=== PATIENT | female | born 1955 | race Caucasian/White ===

== ENCOUNTER → 2020-04-28 10:43 | Outpatient (CLI) | payer OTHER, SELFPAY | PROVIDERS: PCP Family Medicine; Visit Provider Family Medicine | DX: R10.9 Unspecified abdominal pain (principal) | CPT/HCPCS: 87086; 87088 ==

== ENCOUNTER 2020-10-24 13:20 | Outpatient (RCR) | payer OTHER, SELFPAY ==
[2020-10-24] MEDS: COVID-19 VACC, MRNA(PFIZER)/PF 30 MCG/0.3 ML SYRINGE IM (15:06)
[2020-11-14] MEDS: COVID-19 VACC, MRNA(PFIZER)/PF 30 MCG/0.3 ML SYRINGE IM (15:09)
== END 2021-01-16 23:59 ==
LOC: IMMUN 13:20
PROVIDERS: PCP Family Medicine; Referring Provider Family Medicine; Visit Provider Family Medicine
DX: Z23 Encounter for immunization (principal)
CPT/HCPCS: 0001A; 0002A; 91300

== ENCOUNTER 2021-03-02 16:00 | Outpatient (RCR) | payer OTHER, SELFPAY ==
--- NOTE | 2021-01-19 16:20 | HP.PTEVAL_ITS ---
Patient's Visit Information JENNY PENA is a 65 year old F referred to Physical Therapy by Dr. Jemma Good MD with a diagnosis of R SHOULDER STRAIN. Date of Evaluation: 01/19/21 Physical Therapist: Maddie You PT, Cert MDT - Visit Plan Frequency: 1-2x /Week Duration: 4-6 Weeks Plan: WOULD RECOMMEND PT 2X'S A WK X [address] GOOD BUT PATIENT UNABLE TO AFFORD DUE TO LACK OF INSURANCE COVERAGE. PATIENT AGREEABLE TO 1X/WK AT THIS TIME FOR 4 MORE VISITS NEEDED. R NECK/SHLD US, E-STIM WITH MH, POSTURE CORRECTION/STRENGTHENING, INSTRUCTION IN APPROPRIATE BODY MECHANICS AND ACTIVITY MODIFICATIONS. RICARDO UE ROM, STRETCHING AND STRENGTHENING. HEP INSTRUCTION. 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 Disability: NO. Present symptoms: INTERMITTENT RIGHT SHOULDER PAIN. INTERMITTENT RIGHT FOREARM AND HAND NUMBNESS AND TINGLING. INTERMITTENT RIGHT NECK AND UPPER TRAP PAIN. Present since: COUPLE MONTHS. Pain Scale: Worst - 4/10 Least - 0/10. Currently: 0/10. Commenced as a result of: NO APPARENT REASON. Symptoms at onset: NECK. Worse: RAISING ARM, LIFTING, REACHING BACK, PUTTING ARM IN A SHIRT, STARTING WEED EATER, MORNING AFTER WEED EATING AND MOWING BUT FEELS GOOD DURING MOWING. DOG GROOMING. DOG PULLING ON LEASE DURING WALK. Better: REST, IBUPROFEN, ICE. Disturbed sleep: NO. Previous history/Previous treatment: SEVERAL YEARS AGO HAD PAIN IN SHLD. SOME FALLS OFF HORSES AND FALLS HIKIING. HAS BEEN SEEING A CHIROPRACTOR OFF AND ON NEEDED FOR NECK FOR ABOUT 10 YEARS. HAD 6 LASER TREATMENTS ON NECK AND SHLD BY CHIROPRACTOR - NO SIGNIFICANT IMPROVEMENT. NO NECK SURGERY. NO MANJIT'S. NO NECK TRACTION. This episode: PT CONSULT. LASER TREATMENTS X 6 ON R SHLD BY CHIROPRACTOR FOR TENDONITIS/BURSITIS. Dizziness: NO. Tinnitis: NO. Nausea: NO. Shortness of Breath: NO. Difficulty Swollowing: NO. Gait: NORMAL. Accidents: MULTIPLE FALLS. NO MAJOR MVA'S. Unexplained weight loss: NO. Imaging: NO SHOULDER X-RAYS. NEVER HAS HAD NECK X-RAYS PER PATIENT REPORT. PMH/Recent major surgery: UNREMARKABLE. - Objective Sitting Posture/Standing Posture: FAIR. FH. RS'S. Active Correction of posture: NE. Other Observations: INDEP GAIT AND TRANSFERS. Motor deficit: RIGHT HAND DOMINANT. 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 LEGT STRUCTURAL IRON WORKER 55 LBS. L UE 5/5 WITH MMT'ING. R UE: SHLD. Sensory deficit: RICARDO UE LIGHT TOUCH SENSATION INTACT AND SYMMETRICAL. ROM deficit: DECREASED RIGHT SHLD ROM COMPARED TO LEFT. IN SUPINE R SHLD FLEX TO 150 DEG, ABD TO 90 DEG, ER - FULL, IR TO 15 DEG (IR AND ER MEASURED WITH 90 DEG ABD). FULL RIGHT ELBOW, FOREARM, WRIST AND HAND ROM. C/O R SHLD PAIN AT THE END OF THE AVAILABLE ROM WITH R SHLD PROM TESTING ALL PLANES EXCEPT ER. Reflexes: RICARDO UE'S 2/3. Dural Signs: POSITIVE RIGHT UE. Cervical Mvmt Loss: Flex: NIL. Pro: NIL. Ext: MIN. Ret: MOD. RSB: MOD TO PATRICA. LSB: MOD TO PATRICA. R Rot: MIN. L Rot: MOD. PATIENT C/O R NECK PAIN AND TIGHTNESS WITH CERVICAL ROM TESTING BUT NO PERIPHERALIZATION OF SX'S WITH TESTING UNTIL DURAL TEST. Postural strength: FAIR. Palpation: NO ACUTE NECK OR SHLD TENDERNESS. TREATMENT: RIGHT NECK AND SHLD US IN SITTING AT 1.5 W/CM2 X 10 MINUTES FOLLOWED BY THER ACT PER BELOW. - Goals Goal 1:: DECREASE C/O NECK, R SHLD AND R UE SX'S. Goal Time Frame: 4-6 Weeks Goal 2:: INCREASE PAINFREE FUNCTIONAL ROM OF R UE TO EASE ADL'S Goal Time Frame: 4-6 Weeks Goal 3:: INCREASE PAINFREE FUNCTIONAL STRENGTH OF R UE TO EASE ADL'S Goal 4:: PATIENT WILL BE INDEP WITH A HEP FOR CONTINUED IMPROVEMENT ONCE FORMAL PHYSICAL THERAPY CONCLUDES. Goal Time Frame: 4-6 Weeks - Anticipated Interventions Patient/Client Instruction: Educate patient on: Condition, Plan of Care, Risk Factors For the Purpose of:: To improve self management Therapeutic Exercise to Include: Strength training, Body mechanics, Postural training, Flexibilty training, Neuromotor development, Passive ROM, Active ROM, Scapular Strength/Stabilization For the Purpose of:: To decrease pain, To increase ROM, To improve muscle performance and motor function, To increase tolerance to activity/condition /position, To improve ability of physical actions for home/community/work/leisure TENS: Yes IF ES: Yes Cryotherapy (ice pack, ice massage): Yes Thermo therapy (hot pack): Yes Ultrasound (thermal/non thermal): Yes For the Purpose of:: To decrease pain, To improve nutrient delivery to tissue Thank you for the opportunity to evaluate your patient. For Medicare and Medicare HMO plans, please review the plan of care and approve it. It will need to be FAXED BACK to us at [phone] for Medicare purposes. For Medicare only, by signing this I certify the plan of care. Please let me know if there are questions or concerns regarding this plan of care. Physician Signature: Date:
--- NOTE | 2021-03-02 17:00 | HP.PTREVAL_ITS ---
Dr. Jemma Good MD, It has been my pleasure to treat JENNY PENA over the last 5 visits for R SHOULDER STRAIN. Please see the progress note below for an update on the physical therapy plan of care! Subjective: PATIENT REPORTS NEEDING TO TAKE PAIN MEDICATION AT WORK ABOUT 11AM TODAY FOR HER SHLD PAIN. PATIENT REPORTS SHE HAS DAYS THAT HER SHLD FEELS GOOD WITHOUT ANY MEDICATION AND OTHER DAYS THAT SHE HURTS ALL OVER. REPORTS INCREASED PAIN AFTER THE LAST VISIT FOR NO APPARENT REASON OTHER THAN THE E-STIM TREATMENT ALTHOUGH THE E-STIM PRIOR TO LAST VISIT SEEMED TO FEEL GOOD. FELL ASLEEP IN FRONT OF TV TWO NIGHTS IN A ROW AND FEELS SHE AGGREVATED THE RIGHT SIDE OF HER NECK. FOR THE MOST PART, OVER-ALL, IT IS DEFINATELY GETTING BETTER. Objective/Function: PATIENT WAS SEEN TODAY FOR RE-ASSESSMENT OF PROGRESS TOWARD THE SET PT GOALS AND THE NEED FOR FURTHER PHYSICAL THERAPY VS READINESS FOR DISCHARGE. PATIENT HAS MADE GOOD PROGRESS WITH THERAPY TOWARD THE SET GOALS BUT SHE STILL HAS SIGNIFICANT RIGHT SHLD IR DYSFUNCTION AND C/O'S OF R SHLD PAIN. FURTHER TESTING MAY BE INDICATED. SHE REPORTS SHE WILL CONTINUE HER HOME EX PROGRAM BUT SHE JUST CAN'T AFFORD TO KEEP COMING TO THERAPY. UPON EXAM TODAY: ROM deficit: IN SUPINE R SHLD FLEX TO 165 DEG, ABD TO 140 DEG, ER - FULL, IR TO 15 DEG (IR AND ER MEASURED WITH 90 DEG ABD). FULL RIGHT ELBOW, FOREARM, WRIST AND HAND ROM. C/O R SHLD PAIN AT THE END OF THE AVAILABLE ROM WITH R SHLD PROM TESTING ALL PLANES EXCEPT ER. ESPECIALLY PAINFULL AND LIMITED WITH INTERNAL R OTATION. Cervical Mvmt Loss: Flex: NIL. Pro: NIL. Ext: MIN. Ret: MOD. RSB: MOD. LSB: MOD. R Rot: MIN. L Rot: MOD. PATIENT C/O R NECK PAIN AND TIGHTNESS WITH CERVICAL ROM TESTING BUT NO PERIPHERALIZATION OF SX'S. Postural strength: FAIR. Palpation: NO ACUTE NECK OR SHLD TENDERNESS. HEP CHECK - INDEP. Plan Plan: PHYSICIAN RE-ASSESSMENT FRIDAY. Goals Goal 1:: DECREASE C/O NECK, R SHLD AND R UE SX'S. Goal Time Frame: 4-6 Weeks Goal Progress: Progressing Goal 2:: INCREASE PAINFREE FUNCTIONAL ROM OF R UE TO EASE ADL'S Goal Time Frame: 4-6 Weeks Goal Progress: Progressing Goal 3:: INCREASE PAINFREE FUNCTIONAL STRENGTH OF R UE TO EASE ADL'S Goal Progress: Progressing Goal 4:: PATIENT WILL BE INDEP WITH A HEP FOR CONTINUED IMPROVEMENT ONCE FORMAL PHYSICAL THERAPY CONCLUDES. Goal Time Frame: 4-6 Weeks Goal Progress: Progressing Anticipated Interventions Patient/Client Instruction: Educate patient on: Condition, Plan of Care, Risk Factors For the Purpose of:: To improve self management Therapeutic Exercise to Include: Strength training, Body mechanics, Postural training, Flexibilty training, Neuromotor development, Passive ROM, Active ROM, Scapular Strength/Stabilization For the Purpose of:: To decrease pain, To increase ROM, To improve muscle performance and motor function, To increase tolerance to activity/condition/position, To improve ability of physical actions for home/community/work/leisure TENS: Yes IF ES: Yes Cryotherapy (ice pack, ice massage): Yes Thermo therapy (hot pack): Yes Ultrasound (thermal/non thermal): Yes For the Purpose of:: To decrease pain, To improve nutrient delivery to tissue Please do not hesitate to contact me at [phone] by phone or if you have questions or concerns regarding this new plan of care! Sincerely, Maddie You PT, Cert MDT
--- NOTE | 2021-05-21 10:46 | HP.PT.NRP ---
JENNY PENA was seen in my office for initial evaluation on 01/19/21. The following Plan of Care was established for this patient: Initial Frequency: 1-2x /Week Initial Duration: 4-6 Weeks Patient/Client Instruction: Educate patient on: Condition, Plan of Care, Risk Factors For the Purpose of:: To improve self management Therapeutic Exercise to Include: Strength training, Body mechanics, Postural training, Flexibilty training, Neuromotor development, Passive ROM, Active ROM, Scapular Strength/Stabilization For the Purpose of:: To decrease pain, To increase ROM, To improve muscle performance and motor function, To increase tolerance to activity/condition/position, To improve ability of physical actions for home/community/work/leisure TENS: Yes IF ES: Yes Cryotherapy (ice pack, ice massage): Yes Thermo therapy (hot pack): Yes Ultrasound (thermal/non thermal): Yes For the Purpose of:: To decrease pain, To improve nutrient delivery to tissue This patient was last seen in our office 03/02/21. Pertinent comments regarding their Physical therapy will appear below: This patient has not returned to Physical Therapy and is appropriate to return to MD for further follow-up as needed. At this point I will be discontinuing this patient from physical therapy. I would be happy to see this patient again in the future if found appropriate by the physician. Thank you! Maddie You, PT, Cert MDT Balance/Gait/Functional tests - Balance/Special Test Scores Quick DASH Score: [phone]
== END 2021-03-02 19:00 | disposition home or self-care (01) ==
LOC: PT 16:00
PROVIDERS: PCP Family Medicine; Referring Provider Family Medicine; Visit Provider Family Medicine
DX: S46.911D Strain of unspecified muscle, fascia and tendon at shoulder and upper arm level, right arm, subsequent encounter (principal); X58.XXXD Exposure to other specified factors, subsequent encounter
CPT/HCPCS: 97014; 97035; 97162; 97164; 97530; G0283

== ENCOUNTER → 2021-03-05 11:45 | Outpatient (CLI) | payer OTHER, SELFPAY ==
[2021-03-05 15:14] LABS: Absolute Lymphocyte Count 2.01 X10^3/uL (0.83-4.51); Absolute Neutrophil Count 4.2 X10^3/uL (2.0-7.7); Basophil# 0.06 X10^3/uL; Basophil% 0.9 % (0-1); Eosinophil# 0.17 X10^3/uL; Eosinophils% 2.5 % (0-5); Hematocrit 41.5 % (37-47); Hemoglobin 13.8 g/dL (12.0-15.0); Lymphocyte # 2.01 X10^3/ul (0.83-4.51); Mean Corp Hgb Conc 33.3 g/dL (32-36); Mean Corpuscular Hgb 31.3 pg (27.0-32.0); Mean Corpuscular Volume 94.1 fL (81-99); Mean Platelet Vol. 9.2 fl (6.2-12.0); Monocyte# 0.44 X10^3/uL; Monocyte% 6.3 % (0-10); NRBC Flagged by Analyzer 0 % (0-5); Neutrophil # 4.22 X10^3/uL (2.7-7.7); Neutrophil % 60.9 % (47-70); Platelet Count 282 K/mm3 (150-450); RBC Distribution Width CV 13.2 % (11.6-14.6); RBC Distribution Width SD 45.7 fl (35.1-43.9); Red Blood Count 4.41 M/mm3 (4.2-5.4); White Blood Count 6.9 K/mm3 (4.4-11.0)
[2021-03-05 15:47] LABS: Thyroid Stim Hormone (TSH) 1.09 uIU/mL (0.358-3.74)
[2021-03-08 12:26] LABS: HPV Reflexed? NOT INDICATED
== END ==
PROVIDERS: PCP Family Medicine; Referring Provider Family Medicine; Visit Provider Family Medicine
DX: Z01.419 Encounter for gynecological examination (general) (routine) without abnormal findings (principal); L65.9 Nonscarring hair loss, unspecified
CPT/HCPCS: 36415; 84443; 85025; 88175; G0145

== ENCOUNTER → 2021-03-19 07:27 | Outpatient (CLI) | payer SELFPAY ==
--- NOTE | 2021-03-19 07:31 | BI_ITS ---
MAMMOGRAPHY - BILATERAL SCREENING REASON FOR EXAM: Female, 65 years old. Routine annual screening examination. PERTINENT HISTORY: Non-contributory. TECHNIQUE: Digital bilateral breast evin (3D mammographic acquisition) in the CC and MLO projections. 2-D mediolateral oblique (MLO) and craniocaudad (CC) views of both breasts were obtained. CAD: Full Field Digital Mammography with Computer Added Detection was performed. COMPARISON: No comparison mammograms available at this time. If any prior films become available, an addendum to this report can be generated. FINDINGS: Breast Composition: The breasts are heterogeneously dense, which may obscure small masses. There are no dominant masses or suspicious calcifications. Small benign-appearing bilateral axillary lymph nodes. No other significant abnormalities are identified. BI/SCREENING MAMM (CAD), BILAT IMPRESSION: Negative screening mammogram. Yearly followup mammogram recommended. (A) ASSESSMENT CATEGORY: BIRADS Category 2: Benign. A letter regarding these results will be sent to the patient by the facility within 30 days. Approximately 10% of breast cancers are not detected by mammography. A normal mammogram should not delay biopsy of a clinically suspicious abnormality. [id number] Electronically Signed: Toño Luo MD at 10:24 EDT , Service support ,
== END ==
PROVIDERS: PCP Family Medicine; Referring Provider Family Medicine; Visit Provider Family Medicine
DX: Z12.31 Encounter for screening mammogram for malignant neoplasm of breast (principal)
CPT/HCPCS: 77067

== ENCOUNTER → 2022-11-04 | Outpatient (CLI) | payer MEDICARE, OTHER, SELFPAY ==
[2022-11-04 18:06] LABS: Erythrocyte Sedimentation Rate 7 mm/hr (0-30)
[2022-11-04 18:09] LABS: Absolute Lymphocyte Count 2.38 X10^3/uL (0.83-4.51); Absolute Neutrophil Count 3.8 X10^3/uL (2.0-7.7); Basophil# 0.05 X10^3/uL; Basophil% 0.7 % (0-1); Eosinophil# 0.13 X10^3/uL; Eosinophils% 1.9 % (0-5); Hematocrit 39.9 % (37-47); Hemoglobin 13.7 g/dL (12.0-15.0); Lymphocyte # 2.38 X10^3/ul (0.83-4.51); Mean Corp Hgb Conc 34.3 g/dL (32-36); Mean Corpuscular Hgb 31.6 pg (27.0-32.0); Mean Corpuscular Volume 91.9 fL (81-99); Monocyte# 0.42 X10^3/uL; Monocyte% 6.2 % (0-10); NRBC Flagged by Analyzer 0 % (0-5); Neutrophil # 3.81 X10^3/uL (2.7-7.7); Neutrophil % 56.1 % (47-70); Platelet Count 279 K/mm3 (150-450); RBC Distribution Width CV 13.2 % (11.6-14.6); Red Blood Count 4.34 M/mm3 (4.2-5.4); White Blood Count 6.8 K/mm3 (4.4-11.0)
[2022-11-04 18:46] LABS: ALB/GLOB Ratio 1.2 RATIO (0.9-2.4); AST(SGOT) 23 U/L (15-37); Alanine Aminotransfer ALT/SGPT 20 U/L (13-56); Albumin, Serum 3.7 g/dL (3.2-5.0); Alkaline Phosphatase 42 U/L (45-117); Anion Gap 4 (5-15); BUN 20 mg/dL (7-18); BUN/Creat Ratio 27.1 RATIO (10-20); Calcium,Total 8.8 mg/dL (8.5-10.1); Chloride 108 mmol/L (98-107); Creatinine, Serum 0.74 mg/dL (0.55-1.02); EST Glomerular Filtration Rate 84 mL/min (>60); Est Glom Filt Rate - Afr Amer 101 mL/min (>60); Globulin 3.1 g/dL (2.2-4.2); Glucose 95 mg/dL (74-106); Potassium 3.8 mmol/L (3.5-5.1); Protein, Total 6.8 g/dL (6.4-8.2); Sodium Level 137 mmol/L (136-145); Thyroid Stim Hormone (TSH) 2.56 uIU/mL (0.358-3.74)
== END | disposition home or self-care (01) ==
LOC: MFPLAB 17:05
PROVIDERS: PCP Family Medicine; Visit Provider Family Medicine
DX: R53.81 Other malaise (principal)
CPT/HCPCS: 36415; 80053; 84443; 85025; 85652

== ENCOUNTER → 2023-08-25 | Outpatient (CLI) | payer MEDICARE, OTHER, SELFPAY ==
--- NOTE | 2023-08-25 07:43 | BI_ITS ---
MAMMOGRAPHY - BILATERAL SCREENING REASON FOR EXAM: Female, 67 years old. Routine annual screening examination. PERTINENT HISTORY: Non-contributory. TECHNIQUE: Digital bilateral breast jez (3D mammographic acquisition) in the CC and MLO projections. 2-D mediolateral oblique (MLO) and craniocaudad (CC) views of both breasts were obtained. CAD: Full Field Digital Mammography with Computer Added Detection was performed. COMPARISON: Comparison is made with prior study dated March 19, 2021. FINDINGS: Breast Composition: The breasts are heterogeneously dense, which may obscure small masses. There are no dominant masses or suspicious calcifications. Stable small benign-appearing bilateral axillary lymph nodes. No other significant abnormalities are identified. There has been no significant change since the prior study. BI/SCRN MAMM (CAD)W/JEZ BILAT IMPRESSION: Stable bilateral screening mammogram. Yearly follow-up mammogram recommended. (A) ASSESSMENT CATEGORY: BIRADS Category 2: Benign. A letter regarding these results will be sent to the patient by the facility within 30 days. Approximately 10% of breast cancers are not detected by mammography. A normal mammogram should not delay biopsy of a clinically suspicious abnormality. [id number] Electronically Signed: Toño Luo MD at 9:00 EST ,
== END | disposition home or self-care (01) ==
LOC: OPBI 07:43
PROVIDERS: PCP Family Medicine; Referring Provider Family Medicine; Visit Provider Family Medicine
DX: Z12.31 Encounter for screening mammogram for malignant neoplasm of breast (principal)
CPT/HCPCS: 77063; 77067

== ENCOUNTER → 2024-08-06 | Outpatient (CLI) | payer MEDICARE, SELFPAY ==
[2024-08-06 18:10] LABS: Anion Gap 6 (5-15); BUN 23 mg/dL (7-18); BUN/Creat Ratio 28.1 RATIO (10-20); Calcium,Total 9.2 mg/dL (8.5-10.1); Chloride 106 mmol/L (98-107); Cholesterol 210 mg/dL (200); Creatinine, Serum 0.82 mg/dL (0.55-1.02); EST Glomerular Filtration Rate 74 mL/min (>60); Est Glom Filt Rate - Afr Amer 90 mL/min (>60); Glucose 90 mg/dL (74-106); High Density Lipoprotein 64 mg/dL; Sodium Level 140 mmol/L (136-145); Triglycerides 151 mg/dL; Very Low Density Lipoprotein 30 mg/dL (5-40)
== END | disposition home or self-care (01) ==
PROVIDERS: PCP Family Medicine; Referring Provider Family Medicine; Visit Provider Family Medicine
DX: I10 Essential (primary) hypertension (principal); L65.9 Nonscarring hair loss, unspecified
CPT/HCPCS: 36415; 80048; 80061; 84443

== ENCOUNTER → 2024-08-09 | Outpatient (CLI) | payer MEDICARE, SELFPAY ==
[2024-08-09 13:33] LABS: Protein, Urine (Random) 9.2 mg/dL (<11.9); Protein:Creat Ratio 93 mg/g CRE (0-200)
== END | disposition home or self-care (01) ==
LOC: LABSPEC 11:18
PROVIDERS: PCP Family Medicine; Referring Provider Family Medicine; Visit Provider Family Medicine
DX: I10 Essential (primary) hypertension (principal); L65.9 Nonscarring hair loss, unspecified
CPT/HCPCS: 82570; 84156

== ENCOUNTER → 2024-09-02 | Outpatient (CLI) | payer MEDICARE, OTHER, SELFPAY ==
--- NOTE | 2024-09-02 16:07 | BD_ITS ---
STUDY: DUAL ENERGY X-RAY ABSORPTIOMETRY / DXA REASON FOR EXAM: Female, 68 years old. V76.12ScreeningBONE DENSITY REASON FOR EXAM TECHNIQUE: Bone Mineral Density (BMD) measurements of lumbar spine and bilateral hips were obtained. COMPARISON: None. FINDINGS: Lumbar Spine (L1-L4): g/cm2 (1.152) / T-score (1.0) / Z-score (2.8) Findings are suggestive of normal bone density with a low fracture risk. Left Femur Total: g/cm2 (0.980) / T-score (0.3) / Z-score (1.6) Left Femoral Neck: g/cm2 (0.816) / T-score (-0.3) / Z-score (1.3) Right Femur Total: g/cm2 (0.932) / T-score (-0.1) / Z-score (1.3) Right Femoral Neck: g/cm2 (0.772) / T-score (-0.7) / Z-score (0.9) BD/Dexa Bone Density Study IMPRESSION: The patient is considered normal as outlined below according to World Lamine Organization (WHO) criteria with a low fracture risk. Reference Information: The T-score is the number of standard deviations above or below the standard which is normal for young adults at their peak bone mineral density. The World Health Organization (WHO) interprets the T-scores as follows: Above -1 Normal bone density Between -1 and -2.5 Osteopenia Equal to / or below -2.5 Osteoporosis As a practical clinical guideline, osteopenia may be graded as follows: Mild -1 through -1.5 Moderate -1.6 through -2.0 Severe -2.1 through -2.4 The Z-score is the number of standard deviations above or below age-matched controls. A Z-score of less than -1.5 would be considered abnormal. References: 1. NIH Osteoporosis and Related Bone Diseases www osteo.org 2. International Society for Clinical Densitometry www iscd.org 3. National Osteoporosis Foundation www nof.org Electronically Signed: Toño Luo MD at 14:21 EST ,
--- NOTE | 2024-09-02 16:07 | BI_ITS ---
MAMMOGRAPHY - BILATERAL SCREENING REASON FOR EXAM: Female, 68 years old. Routine annual screening examination. PERTINENT HISTORY: Non-contributory. TECHNIQUE: Digital bilateral breast jez (3D mammographic acquisition) in the CC and MLO projections. 2-D mediolateral oblique (MLO) and craniocaudad (CC) views of both breasts were obtained. CAD: Full Field Digital Mammography with Computer Added Detection was performed. COMPARISON: Comparison is made with prior study dated August 25, 2023 and March 19, 2021. FINDINGS: Breast Composition: The breasts are heterogeneously dense, which may obscure small masses. There are no dominant masses or suspicious calcifications. Stable bilateral small fat containing axillary lymph nodes. No other significant abnormalities are identified. There has been no significant change since the prior study. BI/SCRN MAMM (CAD)W/JEZ BILAT IMPRESSION: Stable bilateral screening mammogram. Yearly follow-up mammogram recommended. (A) ASSESSMENT CATEGORY: BIRADS Category 2: Benign. A letter regarding these results will be sent to the patient by the facility within 30 days. Approximately 10% of breast cancers are not detected by mammography. A normal mammogram should not delay biopsy of a clinically suspicious abnormality. [id number] Electronically Signed: Toño Luo MD at 8:51 EST ,
== END | disposition home or self-care (01) ==
PROVIDERS: PCP Family Medicine; Referring Provider Family Medicine; Visit Provider Family Medicine
DX: Z12.31 Encounter for screening mammogram for malignant neoplasm of breast (principal); N95.9 Unspecified menopausal and perimenopausal disorder
CPT/HCPCS: 77063; 77067; 77080

== ENCOUNTER → 2024-09-15 | Outpatient (CLI) | payer MEDICARE, OTHER, SELFPAY ==
--- NOTE | 2024-09-15 15:18 | NEURO ---
NCS and/or EMG Patient Report Ordering Doctor: Jemma Good DATE OF SERVICE: 09/15/24 Jemma presents for electrodiagnostic testing of the right upper limb. She reports pain around the right elbow with tingling in the forearm. Electrodiagnostic findings: Right median motor nerve demonstrates normal distal latency and amplitude with mildly reduced conduction velocity. Right ulnar motor response is within normal limits. Normal sensory responses. Normal median and ulnar F?waves. Needle EMG testing was performed the right upper limb. All muscles tested showed no evidence of denervation with normal motor unit action potentials. Electrodiagnostic impression: This is a normal electrodiagnostic study of the right upper limb. There is no electrodiagnostic evidence for peripheral neuropathy or cervical radiculopathy. Multi Select Codes Neurology Neurology Interp Codes: 80933-45 Musc test done w/n test comp (interp) and 35981-28 Nrv cndj test 7-8 studies (interp)
== END | disposition home or self-care (01) ==
LOC: PSN 13:54
PROVIDERS: PCP Family Medicine; Referring Provider Family Medicine; Visit Provider Family Medicine
DX: R20.2 Paresthesia of skin (principal)
CPT/HCPCS: 95886; 95910

== ENCOUNTER → 2024-09-23 | Outpatient (CLI) | payer MEDICARE, OTHER, SELFPAY ==
--- NOTE | 2024-09-23 15:50 | RAD_ITS ---
EXAM: XR Right Knee Complete, 4 or More Views CLINICAL INDICATION: TECHNIQUE: Four or more views of the right knee. COMPARISON: No relevant prior studies available. FINDINGS: BONES/JOINTS: Unremarkable. No acute fracture. No dislocation. SOFT TISSUES: Unremarkable. RAD/Knee 4 or More Views IMPRESSION: No acute fracture. [facility]
== END | disposition home or self-care (01) ==
LOC: MTRAD 15:48
PROVIDERS: PCP Family Medicine; Referring Provider Family Medicine; Visit Provider Family Medicine
DX: M25.561 Pain in right knee (principal)
CPT/HCPCS: 73564

== ENCOUNTER 2024-10-25 11:30 | Outpatient (RCR) | payer MEDICARE, OTHER, SELFPAY ==
--- NOTE | 2024-10-18 09:29 | HP.PTEVAL ---
Patient's Visit Information Visit Information Visit Information: JENNY PENA is a 69 year old F referred to Physical Therapy by Dr. Jemma Good MD with a diagnosis of R knee strain. Date of Evaluation: 10/15/24 Physical Therapist: Khoa Rod DPT Visit Plan Frequency: 1x/Week Duration: 6 Weeks Plan: 1) HS stretching, foam rolling to R HS 2) quad strengthening of RLE 3) may use US if pain is not reducing Subjective Subjective: Pt. is here today for her initial evaluation with R knee strain. Pt. reports no mech of injury. pt. reports increased posterior/medial knee pain. Worse with standing and walking. Minimal pain at rest. She had a bad day a few days ago, but today is better. No N/T, no calf pain. Pt. is sleeping well without issues. Pt. works at a [employer] and has to do a lot of standing and lifting. Pt. reports her knee does bother her with bending as well. Pt. does have a history of knee pain that did alleviate with PT many years ago. Pt. 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 Pain R knee: Pain Intensity (Out of 10): 3 Pain Intensity Range: 2 and 6 Comment: medial aspect Objective Objective: POSTURE: Pt. has normal posture in stance. PALPATION: Pt. has tenderness at medial distal HS and at medial joint line. NEURO: normal. ROM: Pt. has marked limited knee flexion, 0-0-111deg Pt. reports her knee has been tight since a previous knee injury. MMT: Pt. has symmetrical strength of BLEs, except knee ext (21.1# on R, 32.9# on L). GAIT: Pt. has slight decreased step length on R side. Pt. has slight lateral lean onto R side during stance phase. STAIRS: mild increase in ascending with increased loading of UEs, more painful with descending during R stance phase. Special Tests R Knee Kiana - Meniscus: Negative R Knee Disco Test - Meniscus: Negative R Knee Manuel - ACL: Negative R Knee Valgus - MCL: Negative R Knee Varus - LCL: Negative Balance/Special Test Scores Lower Extremity Functional Score: 46 Goals Goal 1:: LTG: Pt. to be I with HEP. Goal Time Frame: 4-6 Weeks Goal 2:: STG: Pt. to have no pain with walking unlimited distances. Goal Time Frame: 2-4 Weeks Goal 3:: LTG: Pt. to complete all work related activities, ie prolonged standing, lifting and walking without increase in symptoms. Goal Time Frame: 4-6 Weeks Goal 4:: LTG: Pt. to have symmetrical BLE strength. Goal Time Frame: 4-6 Weeks Rehabilitation Potential Physical Therapy Diagnosis: Pt. has signs and symptoms consistent with R knee strain. Pt. does have some R knee ext weakness and loss of knee flexion on the same side. I would recommend that she has PT to work on increasing both as able in order to get back to all work and recreational activities without limitations. Rehabilitation Potential: Excellent Anticipated Interventions Patient/Client Instruction: Educate patient on: Condition, Plan of Care, Risk Factors and Benefits of Fitness Program For the Purpose of:: To improve health and function, To foster healthy habits, To improve decision making, To facilitate caregiver knowledge, To improve self management, To prevent re-injury and To improve ability to perform tasks related to life management Therapeutic Exercise to Include: Strength training, Power training, Endurance training, Postural training, Flexibilty training, Passive ROM and Active ROM For the Purpose of:: To decrease pain, To decrease swelling/inflammation, To increase ROM, To improve nutrient delivery to tissue, To increase oxygenation perfusion, To improve muscle performance and motor function, To improve ability to perform ADL's, To improve health of tissue, To decrease soft tissue restriction and To increase flexibility/ROM Manual Therapy Techniques to Include: Soft tissue mobilization Comment: IASTIM For the Purpose of:: To decrease pain, To decrease swelling/inflammation and To increase ROM Ultrasound (thermal/non thermal): Yes For the Purpose of:: To decrease pain, To decrease swelling/inflammation, To increase ROM, To decrease soft tissue restriction and To increase flexibility/ROM Text: Thank you for the opportunity to evaluate your patient. For Medicare and Medicare HMO plans, please review the plan of care and approve it. It will need to be FAXED BACK to us at [phone] for Medicare purposes. For Medicare only, by signing this I certify the plan of care. Please let me know if there are questions or concerns regarding this plan of care. Physician Signature: Date:
== END 2024-10-25 19:00 | disposition home or self-care (01) ==
LOC: PT 11:30
PROVIDERS: PCP Family Medicine; Referring Provider Family Medicine; Visit Provider Family Medicine
DX: S83.91XD Sprain of unspecified site of right knee, subsequent encounter (principal)
CPT/HCPCS: 97110; 97161

== ENCOUNTER → 2025-01-31 | Outpatient (CLI) | payer MEDICARE, OTHER, SELFPAY ==
[2025-01-31 12:53] LABS: Absolute Lymphocyte Count 2.03 X10^3/uL (0.83-4.51); Absolute Neutrophil Count 4.4 X10^3/uL (2.0-7.7); Basophil# 0.06 X10^3/uL; Basophil% 0.8 % (0-1); Eosinophil# 0.14 X10^3/uL; Hemoglobin 13.4 g/dL (12.0-15.0); Lymphocyte # 2.03 X10^3/ul (0.83-4.51); Lymphocyte % 28.6 % (19-41); Mean Corp Hgb Conc 33.5 g/dL (32-36); Mean Corpuscular Hgb 31.4 pg (27.0-32.0); Mean Corpuscular Volume 93.7 fL (81-99); Mean Platelet Vol. 9.2 fl (6.2-12.0); Monocyte# 0.46 X10^3/uL; Monocyte% 6.5 % (0-10); NRBC Flagged by Analyzer 0 % (0-5); Neutrophil % 61.8 % (47-70); Platelet Count 289 K/mm3 (150-450); RBC Distribution Width CV 13.3 % (11.6-14.6); RBC Distribution Width SD 45.5 fl (35.1-43.9); Red Blood Count 4.27 M/mm3 (4.2-5.4); White Blood Count 7.1 K/mm3 (4.4-11.0)
[2025-01-31 14:04] LABS: Anion Gap 9 (5-15); BUN 17 mg/dL (4-19); BUN/Creat Ratio 17.9 RATIO (10-20); Calcium,Total 9.2 mg/dL (7.6-11.0); Carbon Dioxide 23.4 mmol/L (21.0-32.0); Chloride 108 mmol/L (98-108); Creatinine, Serum 0.92 mg/dL (0.70-1.20); EST Glomerular Filtration Rate 68 (>60); Ferritin 150 ng/mL (22-378); Glucose 90 mg/dL (70-99); Potassium 4.9 mmol/L (3.3-5.1); Sodium Level 141 mmol/L (133-145)
[2025-01-31 14:40] LABS: Microalbumin,Random Urine < 12.0 mg/L (NO RANGE EST.); Microalbumin:Creatinine Ratio UNABLE TO CALCULATE mg/g CRE
[2025-01-31 15:38] LABS: CORTISOL AM 9.72 ug/dL (6.02-18.40)
[2025-02-02 04:07] LABS: DHEA Sulfate 41.1 ug/dL (20.4-186.6)
== END | disposition home or self-care (01) ==
LOC: MFPLAB 10:47
PROVIDERS: PCP Family Medicine; Visit Provider Family Medicine
DX: I10 Essential (primary) hypertension (principal); M25.50 Pain in unspecified joint; L65.9 Nonscarring hair loss, unspecified; L60.8 Other nail disorders
CPT/HCPCS: 36415; 80048; 82043; 82533; 82570; 82627; 82728; 84403; 85025; 82626

== ENCOUNTER → 2025-02-10 | Outpatient (CLI) | payer MEDICARE, OTHER, SELFPAY ==
[2025-02-10 18:27] LABS: CRP < 3.00 mg/L (0.0-3.0)
[2025-02-13 08:07] LABS: Lyme Scn Total Ab w/Rflx Negative (Negative)
== END | disposition home or self-care (01) ==
LOC: MTLAB 15:59
PROVIDERS: PCP Family Medicine; Referring Provider Family Medicine; Visit Provider Family Medicine
DX: M25.561 Pain in right knee (principal)
CPT/HCPCS: 36415; 86140; 86618

== ENCOUNTER → 2025-02-25 | Outpatient (CLI) | payer MEDICARE, OTHER, SELFPAY ==
--- NOTE | 2025-02-25 17:17 | MRI_ITS ---
PROCEDURE: LOWER EXT JOINT ONLY (ROUTINE) 02/25/2025 REASON FOR EXAM: RIGHT KNEE PAIN TECHNIQUE: T1, T2, PD, LOWER EXT JOINT ONLY (ROUTINE) Multiplanar and multisequence images were obtained without IV contrast administration. COMPARISON: COMPARISON : September 23, 2024 x-ray FINDINGS: Bone Marrow: There is no bony contusion or osteochondral defect. Cruciate ligaments. There is a edema and attenuation in the lower 1/3 of the anterior cruciate ligament without laxity, grade 2 sprain. There is thickening and attenuation with edema in the proximal 3rd of the posterior cruciate without laxity, grade 2 sprain. Collateral ligaments: The medial collateral ligament appears intact. The lateral collateral ligament complex appears intact. Menisci: The lateral meniscus appears intact. There is a radial tear of the root of the medial meniscus, coronal image 9/30. Extensor mechanism: There is mild distal quadriceps and proximal patellar tendon tendinopathy without tear. Effusion: There is a trace joint effusion. There is a 0.8 x 0.4 cm Howell's cyst. 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 MRI/Lower Ext Joint Only (Routine) IMPRESSION: There is a edema and attenuation in the lower 1/3 of the anterior cruciate liga ment without laxity, grade 2 sprain. There is thickening and attenuation with edema in the proximal 3rd of the poste rior cruciate without laxity, grade 2 sprain. There is a radial tear of the root of the medial meniscus, coronal image 9/30. There is mild distal quadriceps and proximal patellar tendon tendinopathy witho ut tear. There is a trace joint effusion. There is a 0.8 x 0.4 cm Howell's cyst. There is severe chondromalacia in the central portion of the medial patellar fa cet. Reading Location: [facility]
== END | disposition home or self-care (01) ==
LOC: MRI 16:56
PROVIDERS: PCP Family Medicine; Referring Provider Family Medicine; Visit Provider Family Medicine
DX: M25.561 Pain in right knee (principal)
CPT/HCPCS: 73721